=== PATIENT | male | born 1965 | race Caucasian/White ===

== ENCOUNTER 2019-03-11 15:14 | Emergency (ER) | payer SELFPAY ==
[2019-03-11 15:15] VITALS: BP 158/90; PULSE 71; RESP 17; TEMP 36.8; O2SAT 100; BMI 27.7
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
--- NOTE | 2019-03-11 15:55 | RAD_ITS ---
STUDY: X-RAY - LEFT KNEE REASON FOR EXAM: Male, 53 years old. Trauma TECHNIQUE: 4 view(s) of the knee. COMPARISON: None. FINDINGS: Normal visualized distal femur. Normal visualized proximal tibia and fibula. Normal proximal tibiofibular articulation. There is mild degenerative arthrosis of the medial femorotibial compartment. Normal lateral femorotibial compartment. There is mild degenerative arthrosis of the patellofemoral articulation. There is a suprapatellar effusion. RAD/Knee 4 or More Views IMPRESSION: 1. Degenerative changes of the medial and patellofemoral compartments. 2. Suprapatellar effusion. 3. There is no evidence of fracture, dislocation, or free intra-articular calcifications. Electronically Signed: Anatoliy Mata MD at 16:22 EDT , Service support ,
[2019-03-11 16:40] VITALS: PULSE 70; RESP 16
== END 2019-03-11 16:45 | disposition home or self-care (01) ==
PROVIDERS: Emergency Provider Physician Assistant
DX: S83.92XA Sprain of unspecified site of left knee, initial encounter (principal); M25.462 Effusion, left knee; V09.9XXA Pedestrian injured in unspecified transport accident, initial encounter; Y93.9 Activity, unspecified; Y92.9 Unspecified place or not applicable; M17.0 Bilateral primary osteoarthritis of knee
CPT/HCPCS: 73564; 99282

== ENCOUNTER 2025-01-27 16:14 | Emergency (ER) | payer MEDICARE, SELFPAY ==
[2025-01-27 16:14] VITALS: BP 171/97; PULSE 81; RESP 14; TEMP 36.7; O2SAT 98; BMI 31.0
--- NOTE | 2025-01-27 16:32 | ED.VIS.GI ---
HPI HPI - GI History of Present Illness Chief Complaint: Flank Pain Informant: patient and spouse/S.O. Narrative Narrative: 2-week history of nerve pain started right flank came around size abdomen and then went to his left side. States pain now more in the middle. Denies nausea or vomiting. Has not eaten due to decreased appetite. Decreased bowel movements however did have 1 today. Not have any black or bloody stools. No abdominal surgeries. No fever chills or sweats. No cough no chest pains. No urinary symptoms. He went to an outside ED he states due to security being rude he left and came here. Supposed be on lisinopril for blood pressure has not been taking it for a year as he does not have established PCP. Prior similar symptoms: No PFSH PFSH Medical History Marijuana use Medical History no medical history Home Medications ?Medication ?Instructions ?Recorded ?Last Taken ?Type lisinopril 20 mg tablet 20 mg PO DAILY #30 tabs 01/27/25 Unknown Rx Allergy/AdvReac Type Severity Reaction Status Date / Time No Known Allergies Allergy Verified 01/27/25 16:14 Social History Smoking Status: Never smoker ROS ROS ED Constitutional Constitutional ED: Denies chills, fever(s) or sweats ENT ENT ED: Denies sore throat Cardiovascular Cardiovascular: Denies chest pain, leg edema, palpitations or racing heartbeat Respiratory/Chest Respiratory/Chest: Denies cough, dyspnea or dyspnea on exertion Gastrointestinal Gastrointestinal: Reports abdominal pain; Denies diarrhea, nausea or vomiting Genitourinary Genitourinary ED: Denies dysuria, hematuria or urinary frequency Musculoskeletal Musculoskeletal: Reports back pain; Denies extremity pain or neck pain Integumentary Denies rash or wounds Neurologic Neurologic: Denies headache(s), paresthesias or weakness EXAM Physical Exam Const Vital Signs: 01/27/25 16:14 01/27/25 18:14 01/27/25 18:14 Temperature 98.1 F 98.4 F Temperature Source Temporal Pulse Rate 81 67 66 Respiratory Rate 14 14 14 Blood Pressure 171/97 H 155/70 H 136/81 H Blood Pressure Mean 121 98 99 Pulse Ox 98 98 100 Oxygen Delivery Method Room Air Room Air Positive well nourished and well developed General Appearance ED: well developed and NAD HEENT Reports moist mucous membranes normocephalic and atraumatic Eyes General Eye ED: Yes normal appearance of both eyes Neck full ROM Chest Wall Chest: Negative for tenderness Resp normal respiratory effort and normal air movement Effort and Inspection: symmetric chest movement; Negative for respiratory distress Cardio regular rate, regular rhythm and no murmurs Peripheral Pulses: pulses 2+ throughout GI normal to inspection, nondistended, normoactive bowel sounds GI Narrative: Mild mid abdominal tenderness no guarding or rebound. Negative Patel's or McBurney's tenderness. Palpation: Negative for guarding or rebound tenderness present Extremity normal to inspection General Extremety ED: Negative for edema or tenderness General Extremity: Negative for edema Neuro oriented x3 and no sensory deficits noted Sensorium / Orientation: awake and alert Skin no rashes or lesions noted and no wounds MDM MDM MDM Narrative Medical decision making narrative: Interventions / MDM: Differential diagnosis: Nonspecific abdominal pain, nonobstructive right inguinal hernia Diagnosis considered but do not suspect: Appendicitis however CT normal. My EKG interpretation: N/A Imaging independently reviewed and interpreted by myself: CT abdomen pelvis with IV contrast: Nonobstructive right inguinal hernia, normal appendix External documents reviewed: N/A Test considered but not ordered:N/A ED course: Nonspecific abdominal pain started on her right side and moved to the left down the middle. Denies any urinary symptoms denies any black or bloody stools. With 2 weeks of symptoms we will check abdominal labs. Will obtain CT abdomen pelvis IV contrast. He declines any pain medicines at this time. Labs are all stable CT scan nonobstructive right inguinal hernia. Patient reports he has been told of bilateral hernias. No pain in this area. No PCP. Elevated blood pressure history of hypertension off his lisinopril for the last year. He does not have a PCP. I discussed restarting his lisinopril for which he agreed. 20 mg sent to his pharmacy. Repeat blood pressure 136/81. He is given follow-up with general surgery with his hernia along with a primary care physician follow-up. All questions were answered. Re-evaluation: stable Disposition discussed with patient/family/significant other: Patient Case discussed with consulting clinician: N/A This note was generated with [employer] dictation software. It may contain incorrect words, spelling, and punctuation that were not noted in checking the note before signing. Lab Data Attestation: I reviewed the patient's lab results. Labs: Laboratory Results - last 24 hr 01/27/25 01/27/25 16:31 17:26 WBC 9.7 RBC 5.04 Hgb 15.9 Hct 45.4 MCV 90.1 MCH 31.5 MCHC 35.0 RDW Std Deviation 45.1 H RDW Coeff of Karen 13.7 Plt Count 221 MPV 10.1 Immature Gran % (Auto) 0.400 Neut % (Auto) 67.1 Lymph % (Auto) 21.5 [place] % (Auto) 7.7 Eos % (Auto) 2.6 Baso % (Auto) 0.7 Absolute Neuts (auto) 6.5 Absolute Lymphs (auto) 2.09 Nucleated RBC % 0 Sodium 139 Potassium 3.8 Chloride 106 Carbon Dioxide 21.2 Anion Gap 12 BUN 18 Creatinine 0.87 Estim Creat Clear Calc 89.27 Est GFR (MDRD) Non-Af 98 BUN/Creatinine Ratio 21.0 H Glucose 127 H Calcium 9.2 Total Bilirubin 0.55 Direct Bilirubin 0.21 AST 23 ALT 16 Alkaline Phosphatase 76 Total Protein 7.1 Albumin 4.1 Globulin 3.0 Lipase 49 Urine Color Yellow Urine Clarity Clear Urine pH 7.0 Ur Specific [place] 1.010 Urine Protein 15 H Urine Glucose (UA) Normal Urine Ketones Negative Urine Occult Blood Negative Urine Nitrite Negative Urine Bilirubin Negative Urine Urobilinogen 4 H Ur Leukocyte Esterase Negative Urine RBC 0 SEEN Urine WBC 0 SEEN Ur Squamous Epith Cells 0 SEEN Urine Bacteria 0 SEEN Urine Mucus 0 SEEN Radiography Diagnostic Testing: Clinical Impression(s) from Imaging Studies Abdomen/Pelvis CT 01/27/25 16:55 IMPRESSION: Right-sided inguinal hernia containing bowel without obstruction. Negative for appendicitis, diverticulitis or obstruction. Reading Location: [facility] Discharge Plan Triage Chief Complaint: Flank Pain ED Provider: Aguila Mcneil Dx/Rx/DC Orders Clinical Impression: Abdominal pain, Indirect right inguinal hernia, History of hypertension Instructions: Abdominal Pain, ED Hernia (Adult) Prescriptions: New lisinopril 20 mg tablet 20 mg PO DAILY Qty: 30 0RF Primary Care Provider: Care Physician,No Primary Referrals: Raffy Scanlon MD [Med Staff - Active Staff] - 1-2 Weeks Elva Travis MD [Med Staff - Active Staff] - 1-2 Weeks Care Physician,No Primary [Primary Care Provider] - Activity Restrictions/Additional Instructions: Abdominal labs were normal. CT scan normal appendix you have a nonobstructive right inguinal hernia. Will restart you on your blood pressure medicines. Follow-up with PCP. You are referred to general surgery for outpatient management of your inguinal hernia. Print Language: Turkish Disposition Disposition: Home, Self Care Discharge Date/Time: 01/27/25 18:16
[2025-01-27] MEDS: 0.9% Normal Saline (1000mL) 1,000 ML 999 ML IV (16:39)
[2025-01-27 16:45] LABS: Hematocrit 45.4 % (40-54); Hemoglobin 15.9 g/dL (13.0-16.5); Immature Granulocytes Count 0.040 X10^3/uL (0.0-0.0); Mean Corp Hgb Conc 35.0 g/dL (32-36); Mean Corpuscular Volume 90.1 fL (80-94); Mean Platelet Vol. 10.1 fl (6.2-12.0); NRBC Flagged by Analyzer 0 % (0-5); Platelet Count 221 K/mm3 (150-450); RBC Distribution Width CV 13.7 % (11.6-14.6); RBC Distribution Width SD 45.1 fl (35.1-43.9); Red Blood Count 5.04 M/mm3 (4.6-6.2); White Blood Count 9.7 K/mm3 (4.4-11.0)
--- NOTE | 2025-01-27 16:55 | CT_ITS ---
PROCEDURE: ABDOMEN/PELVIS W IV CONT ONLY 01/27/2025 REASON FOR EXAM: PAIN TECHNIQUE: ABDOMEN/PELVIS W IV CONT ONLY Coronal and Sagittal reconstruction series were provided. CONTRAST: Isovue 370 VOLUME: 99 mL One or more dose reduction techniques were used (e.g., Automated exposure control, adjustment of the mA and/or kV according to patient size, use of iterative reconstruction technique. RADIATION DOSE SUMMARY: CTDlvol: 21 mGy DLP: 1028 mGycm FINDINGS: Liver, gallbladder, spleen, adrenal glands and kidneys are unremarkable. There are small dependent gallstones. No pancreatic masses noted. There is no free-fluid or free air. There is no bowel obstruction. There is a right-sided inguinal hernia containing small bowel without secondary obstruction. There is no free-fluid. CT/Abdomen/Pelvis W IV Cont ONLY IMPRESSION: Right-sided inguinal hernia containing bowel without obstruction. Negative for appendicitis, diverticulitis or obstruction. Reading [facility]
[2025-01-27 17:00] LABS: AST(SGOT) 23 U/L (<=37); Alanine Aminotransfer ALT/SGPT 16 U/L (<=46); Albumin, Serum 4.1 g/dL (3.4-4.8); Alkaline Phosphatase 76 U/L (40-129); Anion Gap 12 (5-15); BUN 18 mg/dL (4-19); BUN/Creat Ratio 21.0 RATIO (10-20); Bilirubin, Direct 0.21 mg/dL (0.00-0.30); Calcium,Total 9.2 mg/dL (7.6-11.0); Carbon Dioxide 21.2 mmol/L (21.0-32.0); Chloride 106 mmol/L (98-108); Estimated Creatinine Clearance 89.27 ml/min (50-250); Globulin 3.0 g/dL (2.2-4.2); Glucose 127 mg/dL (70-99); Lipase 49 U/L (13-75); Potassium 3.8 mmol/L (3.3-5.1)
[2025-01-27 17:29] LABS: Mucous, Urine 0 SEEN /hpf (<or=2+); Red Blood Cells-Urine 0 SEEN /hpf (0-5); Squamous Epithelial Cells - UA 0 SEEN /hpf (0-5)
[2025-01-27 17:34] LABS: Color, Urine Yellow (Yellow); Glucose, Dipstick Normal (Normal); Ketone-Dipstick Negative (Negative); Leukocyte Esterase-Dipstick Negative /ul (Negative); Nitrite-Dipstick Negative (Negative); Occult Blood-Urine Negative /ul (Negative); Protein-Dipstick 15 mg/dl (Negative); Specific Gravity, Urine 1.010 (1.002-1.030); Urine Bilirubin Dipstick Negative (Negative)
[2025-01-27 18:14] VITALS: BP 136/81; BP 155/70; PULSE 66; PULSE 67; RESP 14; TEMP 36.9; O2SAT 100; O2SAT 98
--- NOTE | 2025-01-27 18:16 | ED.RN ---
CALLED PER PT. REQUEST. SHE IS ON HER WAY TO THE HOSPITAL NOW FOR HIS DISCHARGE.
== END 2025-01-27 18:16 | disposition home or self-care (01) ==
PROVIDERS: Emergency Provider Emergency Medicine; Visit Provider Emergency Medicine
DX: R10.9 Unspecified abdominal pain (principal); I10 Essential (primary) hypertension; K40.90 Unilateral inguinal hernia, without obstruction or gangrene, not specified as recurrent
CPT/HCPCS: 74177; 80048; 80076; 81001; 83690; 85025; 96360; 99283; Q9967; A4216